=== PATIENT | male | born 1960 | race Caucasian/White ===

== ENCOUNTER 2020-12-10 11:09 | Emergency (ER) | payer OTHER ==
[2020-12-10] MEDS ORDERED: CEPHALEXIN500 M1 PO (15:15)
[2020-12-10] MEDS ORDERED: BACTROBAN OINT22 GM EXT (15:15)
[2020-12-10] MEDS ORDERED: IBUPROFEN600 MG PO (15:15)
== END 2020-12-10 16:00 | disposition home or self-care (01) ==
LOC: ER1 11:09
DX: S61.412A Laceration without foreign body of left hand, initial encounter (principal); I10 Essential (primary) hypertension; Z23 Encounter for immunization; W26.8XXA Contact with other sharp object(s), not elsewhere classified, initial encounter; Y92.89 Other specified places as the place of occurrence of the external cause; Y99.0 Civilian activity done for income or pay
CPT/HCPCS: 12002; 73130; 90471; 90715; 99283